=== PATIENT | male | born 1965 | race Caucasian/White ===

== ENCOUNTER 2018-12-06 09:33 | Day surgery (SDC) | payer BC ==
[2018-12-06] MEDS ORDERED: MIDAZOLAM 1 MG/ML 2 ML INJ (10:59)
[2018-12-06] MEDS ORDERED: LIDOCAINE 2% (SDV) 5 ML INJ (10:59)
[2018-12-06] MEDS ORDERED: PROPOFOL 20 ML (10:59)
[2018-12-06] MEDS ORDERED: ETOMIDATE 20 MG INJ (11:00)
[2018-12-06] MEDS ORDERED: LIDOCAINE 4% SOLUTION 50 ML BTL (11:00)
[2018-12-06] MEDS ORDERED: FENTAnyl 50 MCG/ML VIAL (11:00)
== END 2018-12-06 17:45 | disposition home or self-care (01) ==
LOC: GIL 09:33
DX: Z12.11 Encounter for screening for malignant neoplasm of colon (principal); K29.30 Chronic superficial gastritis without bleeding; K64.8 Other hemorrhoids
CPT/HCPCS: 43239; 88305; 88312